=== PATIENT | male | born 1950 | race Caucasian/White ===

== ENCOUNTER 2016-11-14 18:12 | Emergency (ER) | payer OTHER ==
[~2016-11-14] VITALS: Ht 175.3 cm; Wt 100.0 kg
[~2016-11-14 18:12] MED LIST: ALLO300T2 PO; INDO-24 PO; LSN5 PO; MULT-506 PO; OMEP20TA14 PO; PSYL55.43 PO; SERT25TA PO
[2016-11-14 18:18] VITALS: TEMP 36.6; Ht 175.3 cm; Wt 100.0 kg
--- NOTE | 2016-11-14 18:34 | EMERGENCY ROOM VISIT NOTE ---
History Report prepared by Luisibharjinder: Ed Steinberg Under the Supervision of: Dr. Vik Gao M.D. First contact with patient: 18:23 Chief Complaint: FALL Stated Complaint: ENTOXICATED FELL DOWN FLIGHT OF CEMENT STEPS History of Present Illness The patient is a 66 year old male who presents to the Emergency Room with complaints of fall that occurred prior to arrival. He reports that he was intoxicated from drinking alcohol and fell down a flight of cement steps. He complains of right sided ankle pain, but denies any other injuries. The patient denies hitting his head, but admits to a possible loss of consciousness. The patient's denies seeing the incident. She admits that he tried to ambulate after the accident, but was not able to walk, so she brought him to the ED. Source of History: patient, spouse/significant other () Onset: prior to arrival Position: other (global) Timing: other (sudden) Modifying Factors (Worsening): other (walking) Associated Symptoms: + LOC Note: Associated symptoms include right sided ankle pain. Review of Systems See HPI for pertinent positives & negatives. A total of 10 systems reviewed and were otherwise negative. Past Medical & Surgical Medical Problems: (1) Benign hypertension (2) Chest pain (3) Gastroesophageal reflux disease (4) History of - gout (5) Hypertension (6) Kidney disease (7) Kidney stones (8) Stomach problems (9) Urinary problem Family History Diabetes mellitus FHx: heart disease FHx: heart failure Gallbladder disease Kidney disease Kidney stones Seizures Social History Smoking Status: Never Smoker Alcohol Use: occasionally Drug Use: none Marital Status: Occupation Status: employed Current/Historical Medications Scheduled Allopurinol (Zyloprim), 300 MG PO DAILY Indomethacin (Indocin), 50 MG PO DIRECTED Lisinopril (Lisinopril), 5 MG PO DAILY Multivitamin (Multivitamin), 1 TAB PO DAILY Omeprazole Magnesium (Prilosec Otc), 20 MG PO DAILY Psyllium (Metamucil Powder), 1 PACK PO DAILY Sertraline (Zoloft), 25 MG PO DAILY Allergies Coded Allergies: No Known Allergies (Unverified , 11/14/16) Physical Exam Vital Signs Date Time Temp Pulse Resp B/P Pulse Ox O2 Delivery O2 Flow Rate FiO2 11/14/16 20:00 87 20 103/64 94 11/14/16 18:18 36.6 65 20 104/60 96 Room Air Physical Exam GENERAL: Patient is a healthy-appearing, well-nourished 66 year old male. HEAD: Normocephalic atraumatic EYES: Horizontal nystagmus. Ocular movements intact, pupils equal and react to light OROPHARYNX mucous membranes are moist no exudates present no erythema or edema present NECK: Supple no nuchal rigidity CHEST: Good equal expansion LUNGS: Clear and equal to auscultation CARDIAC: Normal S1 and S2 ABDOMEN: Soft nontender no guarding BACK: No CVA tenderness EXTREMITIES: Dime sized abrasion to right ankle. Able to ambulate. No pain upon palpation, normal muscle strength in all groups no clubbing cyanosis or edema NEURO: Patient is following commands, is answering questions appropriately. Alert and oriented x3 Cranial Nerves 2-12 grossly intact Medical Decision & Procedures ER Provider Diagnostic Interpretation: Radiology results as stated below per my review and radiologist interpretation: CT SCAN OF THE BRAIN WITHOUT IV CONTRAST CLINICAL HISTORY: Trauma. Fall. COMPARISON STUDY: No priors. TECHNIQUE: Unenhanced axial CT scan of the brain is performed from the vertex to the skull base. CT DOSE: 601.98 mGy.cm FINDINGS: Brain parenchyma: There are age-related involutional changes noting minimal subcortical and periventricular microangiopathic change. There is no hemorrhage, mass effect, or evidence of acute territorial ischemia by CT criteria. The pineal gland is densely calcified. [place]-white matter is preserved. No extra-axial fluid collection is seen. Ventricles, sulci, cisterns: Prominent secondary to involutional change. Intracranial vasculature: There is mild atherosclerotic calcification of the cavernous carotid arteries. Calvarium: There is no depressed calvarial fracture. Sinuses and mastoids: The visualized paranasal sinuses are clear. The mastoid air cells are well pneumatized. Orbits: The bony orbits are grossly intact. IMPRESSION: There is no hemorrhage, mass effect, or evidence of acute territorial ischemia by CT criteria. Electronically signed by: Isaak Josue M.D. 11/14/2016 6:58 PM Dictated Date/Time: 11/14/2016 6:55 PM RIGHT ANKLE 3 VIEWS CLINICAL HISTORY: Fall with right ankle pain. FINDINGS: 3 views of the right ankle are obtained. No prior studies are available for comparison at the time of dictation. The skeletal structures are well mineralized for age. There is an avulsion fracture identified along the dorsal aspect of the talus seen on the lateral projection. No fracture is seen at the ankle joint. The distal tibia and fibula are maintained. The ankle mortise is intact. Enthesophytes arise from the medial and lateral malleolus. There is degenerative spurring seen from the anterior and posterior tibial plafonds. Large dorsal and plantar calcaneal enthesophytes are noted. There is an ankle joint effusion and soft tissue swelling is present around ankle joint. IMPRESSION: 1. There is an avulsion fracture identified along the dorsal aspect of the talus. 2. No fracture is identified at the ankle joint. 3. Joint effusion and soft tissue swelling. 4. Large heel spurs. Electronically signed by: Isaak Josue M.D. 11/14/2016 7:15 PM Dictated Date/Time: 11/14/2016 7:13 PM ED Course 1825: Past medical records reviewed. The patient was evaluated in room B8. A complete history and physical examination was performed. 2015: Upon reexamination the patient is doing well. I discussed results and treatment plan with the patient. He verbalizes agreement and understanding. The patient is ready for discharge. Medical Decision Medication Reconciliation: I attest that I have personally reviewed the patient' s current medication list. Blood Pressure Screening: Patient was found to have normal blood pressure on screening and does not require follow up. Etiologies such as fracture, dislocation, neurovascular compromise, compartment syndrome, soft tissue injury, as well as others were entertained. This is a 66-year-old male who presents emergency department complaining of ankle pain after falling down flight of stairs. The patient is clinically intoxicated. For this reason he was sent for CAT scan of the head as well as x- rays of the ankle. X-rays of the ankle are concerning for an ankle fracture. Before I could talk to the patient about this the patient had left the emergency department. He was retrieved by his family however the patient is refusing to allow me to speak with the family. He was given the news about his ankle fracture and I recommended a gel ankle splint as well as crutches however the patient is refusing his crutches. He is going to follow-up with orthopedics. Patient was in agreement with treatment plan. Impression Primary Impression: Ankle fracture, right Additional Impression: Head injury Scribe Attestation The scribe's documentation has been prepared under my direction and personally reviewed by me in its entirety. I confirm that the note above accurately reflects all work, treatment, procedures, and medical decision making performed by me. Departure Information Dispostion Home / Self-Care Referrals Lucero Jo D.O. (PCP) Forms HOME CARE DOCUMENTATION FORM, IMPORTANT VISIT INFORMATION Patient Instructions ED Crutch Walking, ED Fx Ankle General, ED Fx Rib, ED Head Injury Closed, My [facility] Additional Instructions Follow up with Dr English's office Take 600 mg Ibuprofen every 6 hours You have been examined and treated today on an emergency basis only. This is not a substitute for, or an effort to provide, complete comprehensive medical care. It is impossible to recognize and treat all injuries or illnesses in a single emergency department visit. It is therefore important that you follow up closely with Dr Jo. Call as soon as possible for an appointment. Thank you for your time and consideration. I look forward to speaking with you again soon. Please don't hesitate to call us if you have any questions. Problem Qualifiers Primary Impression: Ankle fracture, right Encounter type: initial encounter Fracture type: closed Qualified Codes: S82.891A - Other fracture of right lower leg, initial encounter for closed fracture Additional Impression: Head injury Encounter type: initial encounter Qualified Codes: S09.90XA - Unspecified injury of head, initial encounter
--- NOTE | 2016-11-14 18:59 | DIAGNOSTIC IMAGING REPORT ---
CT SCAN OF THE BRAIN WITHOUT IV CONTRAST CLINICAL HISTORY: Trauma. Fall. COMPARISON STUDY: No priors. TECHNIQUE: Unenhanced axial CT scan of the brain is performed from the vertex to the skull base. CT DOSE: 601.98 mGy.cm FINDINGS: Brain parenchyma: There are age-related involutional changes noting minimal subcortical and periventricular microangiopathic change. There is no hemorrhage, mass effect, or evidence of acute territorial ischemia by CT criteria. The pineal gland is densely calcified. [place]-white matter is preserved. No extra-axial fluid collection is seen. Ventricles, sulci, cisterns: Prominent secondary to involutional change. Intracranial vasculature: There is mild atherosclerotic calcification of the cavernous carotid arteries. Calvarium: There is no depressed calvarial fracture. Sinuses and mastoids: The visualized paranasal sinuses are clear. The mastoid air cells are well pneumatized. Orbits: The bony orbits are grossly intact. IMPRESSION: There is no hemorrhage, mass effect, or evidence of acute territorial ischemia by CT criteria. Electronically signed by: Isaak Josue M.D. 11/14/2016 6:58 PM Dictated Date/Time: 11/14/2016 6:55 PM
--- NOTE | 2016-11-14 19:16 | DIAGNOSTIC IMAGING REPORT ---
RIGHT ANKLE 3 VIEWS CLINICAL HISTORY: Fall with right ankle pain. FINDINGS: 3 views of the right ankle are obtained. No prior studies are available for comparison at the time of dictation. The skeletal structures are well mineralized for age. There is an avulsion fracture identified along the dorsal aspect of the talus seen on the lateral projection. No fracture is seen at the ankle joint. The distal tibia and fibula are maintained. The ankle mortise is intact. Enthesophytes arise from the medial and lateral malleolus. There is degenerative spurring seen from the anterior and posterior tibial plafonds. Large dorsal and plantar calcaneal enthesophytes are noted. There is an ankle joint effusion and soft tissue swelling is present around ankle joint. IMPRESSION: 1. There is an avulsion fracture identified along the dorsal aspect of the talus. 2. No fracture is identified at the ankle joint. 3. Joint effusion and soft tissue swelling. 4. Large heel spurs. Electronically signed by: Isaak Josue M.D. 11/14/2016 7:15 PM Dictated Date/Time: 11/14/2016 7:13 PM
[2016-11-14 20:00] VITALS: BP 103/64; PULSE 87; O2SAT 94
== END 2016-11-14 20:20 | disposition home or self-care (01) ==
LOC: C.EDB 18:14
DX: S92.154A Nondisplaced avulsion fracture (chip fracture) of right talus, initial encounter for closed fracture (principal); S09.90XA Unspecified injury of head, initial encounter; I10 Essential (primary) hypertension; K21.9 Gastro-esophageal reflux disease without esophagitis; Z79.899 Other long term (current) drug therapy; Z87.442 Personal history of urinary calculi; Z87.448 Personal history of other diseases of urinary system; Z82.0 Family history of epilepsy and other diseases of the nervous system; Z82.49 Family history of ischemic heart disease and other diseases of the circulatory system; Z83.3 Family history of diabetes mellitus; Z83.79 Family history of other diseases of the digestive system; Z84.1 Family history of disorders of kidney and ureter; W10.9XXA Fall (on) (from) unspecified stairs and steps, initial encounter